=== PATIENT | female | born 1950 | race Caucasian/White ===

== ENCOUNTER → 2016-07-15 | Outpatient (CLI) | payer OTHER ==
[~2016-07-15] MED LIST: ASPI81TA2 PO; CARV3.123 PO; CITA40TA14 PO; HYDR25TA PO; LOSA50TA2 PO; MULT-1243 PO; NAPR220T61 PO; PANT40TA PO
== END ==
LOC: IMA.MDS 10:09
PROVIDERS: ATTEND Family Medicine
DX: M17.0 Bilateral primary osteoarthritis of knee (principal)